=== PATIENT | female | born 1995 | race Two or more races ===

== ENCOUNTER 2023-01-13 11:19 | Emergency (ER) | payer MEDICAID, OTHER ==
[~2023-01-13] VITALS: Ht 165.1 cm; Wt 80.5 kg
[~2023-01-13 11:19] MED LIST: PRENCAP87 PO
[2023-01-13] MEDS ORDERED: ACETAMINOPHEN 325 MG TAB PO ONE (11:45)
[2023-01-13 14:39] LABS: COVID19 ANTIGEN SOFIA FIA POSITIVE (NEGATIVE)
[2023-01-13 14:47] LABS: Urine Bacteria MOD /hpf (None Seen); Urine Blood Negative /uL (Negative); Urine Clarity HAZY (Clear); Urine Color Yellow (Yellow); Urine Mucus FEW (None Seen); Urine Protein, UAD TRACE (Negative); Urine Specific Gravity 1.023 (1.001-1.035); Urine Urobilinogen Normal (Negative); Urine WBC 8 /hpf (0 - 5); Urine pH 5.5 (5.0-8.0)
[2023-01-13] MEDS ORDERED: BENZ200C64 PO (15:06)
[2023-01-13] MEDS ORDERED: CEPH500C PO (15:06)
[2023-01-13] MEDS ORDERED: ALBUAER3 IN (15:06)
[2023-01-13] MEDS ORDERED: BENZLOZ2 MT (15:06)
[2023-01-13] MEDS ORDERED: DEX4T PO (15:06)
[2023-01-13] MEDS ORDERED: ZOFR4T PO (15:06)
[2023-01-13 15:12] VITALS: BP 148/90; PULSE 96; RESP 16; TEMP 98.4; O2SAT 100
== END 2023-01-13 15:13 | disposition home or self-care (01) ==
LOC: ER 11:19
DX: U07.1 COVID-19 (principal); J20.9 Acute bronchitis, unspecified; J02.9 Acute pharyngitis, unspecified
CPT/HCPCS: 36415; 71045; 81001; 81025; 87426

== ENCOUNTER → 2023-03-28 | Outpatient (CLI) | payer MEDICAID ==
[~2023-03-28] MED LIST changes: +ALBUAER3 IN; +BENZ200C64 PO; +BENZLOZ2 MT; +CEPH500C PO; +DEX4T PO; +ZOFR4T PO
[2023-03-28 12:47] LABS: Basophils # (auto) 0 10 ^3/uL (0-0.2); Basophils % (auto) 0.5 % (0.0-2.0); Eosinophils # (auto) 0.1 10 ^3/uL (0-0.8); Eosinophils % (auto) 1.3 % (0.0-7.0); Hematocrit 39.5 % (36.0-46.0); Hemoglobin 13.6 g/dL (12.2-16.2); Lymphocytes # (auto) 1.4 10 ^3/uL (0.4-5.4); Lymphocytes % (auto) 16.8 % (10.0-50.0); Mean Corpuscular Hemoglobin 31.5 pg (28.0-32.0); Mean Corpuscular Hgb Conc. 34.3 g/dL (32.0-36.0); Mean Corpuscular Volume 91.8 fL (80.0-100.0); Monocytes # (auto) 0.6 10 ^3/uL (0-1.3); Monocytes % (auto) 7.3 % (0.0-12.0); Neutrophils # (auto) 6.3 10 ^3/uL (1.6-8.6); Neutrophils % (auto) 74.1 % (37.0-80.0); Nucleated Red Blood Cells % 0.1 %; Red Blood Cells 4.31 10^6/uL (4.0-5.20); Red Cell Distribution Width 13.3 % (11.8-14.3); White Blood Cell 8.5 10^3/uL (4.4-10.8)
[2023-03-28 13:15] LABS: Amphetamine Screen, Urine Neg (NEGATIVE); Barbiturate Scree,Urine Neg (NEGATIVE); Benzodiazephine Screen, Urine Neg (NEGATIVE); Cannabinoid Screen, Urine Neg (NEGATIVE); Cocaine Screen, Urine Neg (NEGATIVE); Opiate Scree,Urine Neg (NEGATIVE); Phencyclidine Screen, Urine Neg (NEGATIVE)
[2023-03-29 06:06] LABS: Varicella Zoster IgG Antibody 579 index (Immune >165)
[2023-03-29 07:06] LABS: RPR Non Reactive (Non Reactive)
[2023-03-29 20:06] LABS: Chlamydia Trachomatis, NAA Negative (Negative); Neisseria gonorrhoeae, NAA Negative (Negative)
[2023-03-31 04:06] LABS: QuantiFERON-TB Gold Plus Negative (Negative)
== END | disposition home or self-care (01) ==
LOC: LAB 12:16
PROVIDERS: ATTEND Obstetrics & Gynecology
DX: Z34.00 Encounter for supervision of normal first pregnancy, unspecified trimester (principal); Z31.430 Encounter of female for testing for genetic disease carrier status for procreative management; N39.0 Urinary tract infection, site not specified; Z36.0 Encounter for antenatal screening for chromosomal anomalies; Z3A.00 Weeks of gestation of pregnancy not specified
CPT/HCPCS: 36415; 80307; 83036; 84702; 85025; 86592; 86703; 86762; 86787; 86850; 86900; 86901; 87086; 87340

== ENCOUNTER 2023-06-11 17:55 | Emergency (ER) | payer MEDICAID ==
[~2023-06-11] VITALS: Ht 162.6 cm; Wt 81.2 kg
[2023-06-11 19:02] LABS: Basophils # (auto) 0 10 ^3/uL (0-0.2); Basophils % (auto) 0.4 % (0.0-2.0); Eosinophils # (auto) 0.1 10 ^3/uL (0-0.8); Eosinophils % (auto) 1.4 % (0.0-7.0); Hematocrit 38.6 % (36.0-46.0); Hemoglobin 13.2 g/dL (12.2-16.2); Lymphocytes # (auto) 1.6 10 ^3/uL (0.4-5.4); Lymphocytes % (auto) 17.8 % (10.0-50.0); Mean Corpuscular Volume 91.1 fL (80.0-100.0); Monocytes # (auto) 0.7 10 ^3/uL (0-1.3); Monocytes % (auto) 7.2 % (0.0-12.0); Neutrophils # (auto) 6.8 10 ^3/uL (1.6-8.6); Neutrophils % (auto) 73.2 % (37.0-80.0); Nucleated Red Blood Cells % 0.1 %; Red Blood Cells 4.24 10^6/uL (4.0-5.20); Red Cell Distribution Width 13.1 % (11.8-14.3); White Blood Cell 9.3 10^3/uL (4.4-10.8)
[2023-06-11 19:33] LABS: Chloride 108 mmol/L (98-107); Sodium 137 mmol/L (136-145)
[2023-06-11 19:34] LABS: Anion Gap 6 (5-15); Calcium 9.6 mg/dL (8.5-10.1); Carbon Dioxide 23 mmol/L (20-30)
[2023-06-11 19:39] LABS: BUN/Creatinine Ratio 15.2 (10.0-20.0); Blood Urea Nitrogen 7 mg/dL (9-23); Glucose 84 mg/dL (74-106)
[2023-06-11 21:09] LABS: Urine Bacteria FEW /hpf (None Seen); Urine Blood Negative /uL (Negative); Urine Clarity Clear (Clear); Urine Color Yellow (Yellow); Urine Protein, UAD Negative (Negative); Urine Specific Gravity 1.023 (1.001-1.035); Urine Urobilinogen Normal (Negative); Urine WBC 1 /hpf (0 - 5)
[2023-06-11 21:23] VITALS: BP 113/78; PULSE 79; RESP 16; TEMP 98.2; O2SAT 98
== END 2023-06-11 21:25 | disposition home or self-care (01) ==
LOC: ER 17:55
DX: O26.892 Other specified pregnancy related conditions, second trimester (principal); R07.89 Other chest pain; R51.9 Headache, unspecified; Z3A.16 16 weeks gestation of pregnancy
CPT/HCPCS: 36415; 80048; 81001; 84484; 85025; 93005

== ENCOUNTER 2023-08-27 12:58 | Observation (INO) | payer MEDICAID ==
[~2023-08-27] VITALS: Ht 165.1 cm; Wt 83.9 kg
[2023-08-27] MEDS ORDERED: ONDANSETRON HCL 4 MG/2 ML VIAL IV ONE (13:45)
[2023-08-27] MEDS: LACTATED RINGER'S 1,000 ML IV ONE (14:02)
[2023-08-27 14:13] VITALS: TEMP 99.9
[2023-08-27] MEDS: ACETAMINOPHEN 500 MG TAB PO ONE ×2 (14:13→15:21)
[2023-08-27] MEDS: ACETAMINOPHEN 325 MG TAB PO PRN (14:13)
[2023-08-27 15:17] LABS: COVID19 ANTIGEN SOFIA FIA NEGATIVE (NEGATIVE)
[2023-08-27 15:18] LABS: Rapid Influenza A Negative (Negative); Rapid Influenza B Negative (Negative)
[2023-08-27] MEDS: D5W/LACTATED RINGERS 1,000 ML IV SCH (15:21)
== END 2023-08-27 17:50 | disposition home or self-care (01) ==
LOC: LDRP 12:58 → UNDOADMOB 12:58 → LDRP 13:12
PROVIDERS: ADMIT Obstetrics & Gynecology; ATTEND Obstetrics & Gynecology
DX: O21.2 Late vomiting of pregnancy (principal); Z20.822 Contact with and (suspected) exposure to COVID-19; O26.892 Other specified pregnancy related conditions, second trimester; R21 Rash and other nonspecific skin eruption; R50.9 Fever, unspecified; R19.7 Diarrhea, unspecified; Z3A.28 28 weeks gestation of pregnancy
CPT/HCPCS: 36415; 59025; 81002; 87426; 87804; 94760; 96360; 96361; G0378

== ENCOUNTER 2023-10-04 11:10 | Observation (INO) | payer MEDICAID ==
[2023-10-04 12:17] LABS: Basophils # (auto) 0 10 ^3/uL (0-0.2); Basophils % (auto) 0.4 % (0.0-2.0); Eosinophils # (auto) 0.1 10 ^3/uL (0-0.8); Eosinophils % (auto) 0.8 % (0.0-7.0); Hematocrit 35.2 % (36.0-46.0); Lymphocytes # (auto) 1.1 10 ^3/uL (0.4-5.4); Lymphocytes % (auto) 13.1 % (10.0-50.0); Mean Corpuscular Hemoglobin 31.4 pg (28.0-32.0); Mean Corpuscular Hgb Conc. 34.1 g/dL (32.0-36.0); Mean Corpuscular Volume 91.8 fL (80.0-100.0); Monocytes # (auto) 0.6 10 ^3/uL (0-1.3); Monocytes % (auto) 7.1 % (0.0-12.0); Neutrophils # (auto) 6.7 10 ^3/uL (1.6-8.6); Neutrophils % (auto) 78.6 % (37.0-80.0); Red Blood Cells 3.83 10^6/uL (4.0-5.20); Red Cell Distribution Width 12.9 % (11.8-14.3); White Blood Cell 8.5 10^3/uL (4.4-10.8)
[2023-10-04 12:33] LABS: Alanine Aminotransferase 34 U/L (7-40); Alkaline Phosphatase 184 U/L (46-116); Anion Gap 8 (5-15); Aspartate Aminotransferase 28 U/L (13-40); Bilirubin, Total 0.7 mg/dL (0.2-1.0); Calcium 9.5 mg/dL (8.7-10.4); Carbon Dioxide 22 mmol/L (20-30); Chloride 107 mmol/L (98-107); Glucose 89 mg/dL (74-106); Potassium 3.9 mmol/L (3.5-5.1); Sodium 137 mmol/L (136-145); Total Protein 6.7 g/dL (5.7-8.2); Uric Acid 3.6 mg/dL (3.1-7.8)
[2023-10-04 12:37] LABS: INR 0.95 (0.9-1.15); Partial Thromboplastin Time 27.6 SEC (24.5-34.5); Prothrombin Time 10.1 sec (9.3-11.8)
[2023-10-04 12:49] LABS: BUN/Creatinine Ratio 10.6 (10.0-20.0); Blood Urea Nitrogen < 5 mg/dL (9-23)
[2023-10-04 12:54] LABS: Urine Bacteria FEW /hpf (None Seen); Urine Blood Negative /uL (Negative); Urine Clarity Ex.Turbid (Clear); Urine Color Light-Orange (Yellow); Urine Hyaline Cast FEW /lpf (0 - 2); Urine Mucus FEW (None Seen); Urine Protein, UAD TRACE (Negative); Urine Specific Gravity 1.016 (1.001-1.035); Urine Urobilinogen Normal (Negative); Urine WBC 12 /hpf (0 - 5); Urine pH 6.5 (5.0-9.0)
[2023-10-04 13:23] LABS: Protein, Urine 37.1 mg/dL (0.0-11.9)
[2023-10-04 13:26] LABS: Creatinine, Urine 81.28 mg/dL (30.0-125.0); Urine Protein/Creatinine Ratio 0.46
== END 2023-10-04 14:05 | disposition short-term general hospital (02) ==
LOC: UNDOADMOB 11:10 → LDRP 11:10
PROVIDERS: ADMIT Obstetrics & Gynecology; ATTEND Obstetrics & Gynecology
DX: O26.893 Other specified pregnancy related conditions, third trimester (principal); R51.9 Headache, unspecified; Z3A.33 33 weeks gestation of pregnancy; Z86.2 Personal history of diseases of the blood and blood-forming organs and certain disorders involving the immune mechanism
CPT/HCPCS: 36415; 59025; 76818; 80053; 81001; 81002; 82570; 84156; 84550; 85025; 85610; 85730; G0378

== ENCOUNTER 2023-10-08 08:29 | Observation (INO) | payer MEDICAID ==
[2023-10-08 12:49] LABS: Urine Bacteria FEW /hpf (None Seen); Urine Blood Negative /uL (Negative); Urine Clarity Turbid (Clear); Urine Color Yellow (Yellow); Urine Protein, UAD Negative (Negative); Urine Specific Gravity 1.018 (1.001-1.035); Urine Urobilinogen Normal (Negative); Urine WBC 2 /hpf (0 - 5); Urine pH 5.5 (5.0-9.0)
[2023-10-08 12:57] LABS: Protein, Urine 12.9 mg/dL (0.0-11.9)
[2023-10-08 13:13] LABS: Protein, Urine 20.5 mg/dL (0.0-11.9)
[2023-10-08 13:16] LABS: Creatinine, Urine 99.4 mg/dL (30.0-125.0); Urine Protein/Creatinine Ratio 0.21
[2023-10-08 13:27] LABS: 24 Hr. Total Protein, Urine 180.6 mg/24 Hr (<149.1)
== END 2023-10-08 14:30 | disposition home or self-care (01) ==
LOC: UNDOADMOB 11:56 → LDRP 11:56
PROVIDERS: ADMIT Obstetrics & Gynecology; ATTEND Obstetrics & Gynecology
DX: Z36.89 Encounter for other specified antenatal screening (principal); Z3A.34 34 weeks gestation of pregnancy; Z79.899 Other long term (current) drug therapy
CPT/HCPCS: 59025; 76818; 81001; 81002; 82570; 82948; 84156; 94760; G0378

== ENCOUNTER 2023-11-05 10:29 | Observation (INO) | payer MEDICAID ==
[~2023-11-05] VITALS: Ht 162.6 cm; Wt 87.5 kg
[2023-11-05] MEDS: ONDANSETRON HCL 4 MG/2 ML VIAL IV ONE (11:30)
[2023-11-05] MEDS: FAMOTIDINE (10MG/ML) 2ML VL IV ONE (11:30)
[2023-11-05] MEDS: LACTATED RINGER'S 1,000 ML IV ONE (11:31)
[2023-11-05 12:02] LABS: Protein, Urine 61.6 mg/dL (0.0-11.9)
[2023-11-05 12:12] LABS: Creatinine, Urine 280.1 mg/dL (30.0-125.0); Urine Protein/Creatinine Ratio 0.22
[2023-11-05 12:25] LABS: Basophils # (auto) 0 10 ^3/uL (0-0.2); Basophils % (auto) 0.4 % (0.0-2.0); Eosinophils # (auto) 0 10 ^3/uL (0-0.8); Eosinophils % (auto) 0.4 % (0.0-7.0); Hematocrit 33.1 % (36.0-46.0); Hemoglobin 11.2 g/dL (12.2-16.2); Lymphocytes % (auto) 14.4 % (10.0-50.0); Mean Corpuscular Hemoglobin 30.9 pg (28.0-32.0); Mean Corpuscular Hgb Conc. 33.9 g/dL (32.0-36.0); Monocytes # (auto) 0.6 10 ^3/uL (0-1.3); Monocytes % (auto) 9.2 % (0.0-12.0); Neutrophils # (auto) 5.1 10 ^3/uL (1.6-8.6); Neutrophils % (auto) 75.6 % (37.0-80.0); Red Blood Cells 3.64 10^6/uL (4.0-5.20); Red Cell Distribution Width 13.4 % (11.8-14.3); White Blood Cell 6.8 10^3/uL (4.4-10.8)
[2023-11-05 12:35] LABS: Albumin 3.6 g/dL (3.2-4.8); Alkaline Phosphatase 207 U/L (46-116); Anion Gap 7 (5-15); Aspartate Aminotransferase 12 U/L (13-40); Bilirubin, Total 0.7 mg/dL (0.2-1.0); Calcium 8.8 mg/dL (8.7-10.4); Carbon Dioxide 20 mmol/L (20-30); Chloride 108 mmol/L (98-107); Glucose 98 mg/dL (74-106); Potassium 3.5 mmol/L (3.5-5.1); Sodium 135 mmol/L (136-145); Total Protein 6.1 g/dL (5.7-8.2); Uric Acid 4.9 mg/dL (3.1-7.8)
[2023-11-05 12:37] LABS: Alanine Aminotransferase < 9 U/L (7-40); Blood Urea Nitrogen < 5 mg/dL (9-23)
[2023-11-05 12:40] LABS: Urine Bacteria MANY /hpf (None Seen); Urine Blood Negative /uL (Negative); Urine Clarity Ex.Turbid (Clear); Urine Color Orange (Yellow); Urine Mucus FEW (None Seen); Urine Protein, UAD 1+ (Negative); Urine Specific Gravity 1.028 (1.001-1.035); Urine Urobilinogen 4 mg/dL (Negative); Urine WBC 22 /hpf (0 - 5)
[2023-11-05 12:41] LABS: Rapid Influenza A Negative (Negative); Rapid Influenza B Negative (Negative)
[2023-11-05 12:41] LABS: INR 0.92 (0.9-1.15); Partial Thromboplastin Time 27.8 SEC (24.5-34.5); Prothrombin Time 9.8 sec (9.3-11.8)
[2023-11-05 12:42] LABS: COVID19 ANTIGEN SOFIA FIA NEGATIVE (NEGATIVE)
[2023-11-05] MEDS: ACETAMINOPHEN 325 MG TAB PO ONE (15:59)
[2023-11-05] MEDS: NIFEdipine 10 MG CAP PO ONE (16:01)
== END 2023-11-05 16:36 | disposition home or self-care (01) ==
LOC: LDRP 10:29
PROVIDERS: ADMIT Obstetrics & Gynecology; ATTEND Obstetrics & Gynecology
DX: O21.2 Late vomiting of pregnancy (principal); Z20.822 Contact with and (suspected) exposure to COVID-19; O26.893 Other specified pregnancy related conditions, third trimester; R51.9 Headache, unspecified; R19.7 Diarrhea, unspecified; Z3A.38 38 weeks gestation of pregnancy; Z98.891 History of uterine scar from previous surgery; Z86.2 Personal history of diseases of the blood and blood-forming organs and certain disorders involving the immune mechanism
CPT/HCPCS: 36415; 59025; 76818; 80053; 81001; 81002; 82570; 84156; 84550; 85025; 85610; 85730; 87426; 87804; 94760; 96361; 96374; 96375; G0378; J2405; J3490

== ENCOUNTER 2023-11-08 08:23 | Inpatient (IN) | payer MEDICAID ==
[~2023-11-08] VITALS: Ht 162.6 cm; Wt 87.1 kg
[2023-11-08 10:54] LABS: Basophils # (auto) 0 10 ^3/uL (0-0.2); Basophils % (auto) 0.5 % (0.0-2.0); Eosinophils # (auto) 0.1 10 ^3/uL (0-0.8); Hematocrit 36.4 % (36.0-46.0); Hemoglobin 12.3 g/dL (12.2-16.2); Lymphocytes # (auto) 1.6 10 ^3/uL (0.4-5.4); Lymphocytes % (auto) 19.4 % (10.0-50.0); Mean Corpuscular Hemoglobin 30.5 pg (28.0-32.0); Mean Corpuscular Hgb Conc. 33.9 g/dL (32.0-36.0); Mean Corpuscular Volume 90.1 fL (80.0-100.0); Monocytes # (auto) 0.7 10 ^3/uL (0-1.3); Monocytes % (auto) 8.2 % (0.0-12.0); Neutrophils # (auto) 5.9 10 ^3/uL (1.6-8.6); Neutrophils % (auto) 70.9 % (37.0-80.0); Red Blood Cells 4.04 10^6/uL (4.0-5.20); Red Cell Distribution Width 13.6 % (11.8-14.3); White Blood Cell 8.3 10^3/uL (4.4-10.8)
[2023-11-08 11:01] LABS: Urine Bacteria FEW /hpf (None Seen); Urine Blood Negative /uL (Negative); Urine Clarity Clear (Clear); Urine Color Light-Yellow (Yellow); Urine Mucus FEW (None Seen); Urine Protein, UAD Negative (Negative); Urine Specific Gravity 1.016 (1.001-1.035); Urine Urobilinogen Normal (Negative); Urine WBC 1 /hpf (0 - 5); Urine pH 6.5 (5.0-9.0)
[2023-11-08 11:21] LABS: INR 0.92 (0.9-1.15); Partial Thromboplastin Time 26.6 SEC (24.5-34.5); Prothrombin Time 9.8 sec (9.3-11.8)
[2023-11-08 11:25] LABS: Alanine Aminotransferase 14 U/L (7-40); Albumin 3.8 g/dL (3.2-4.8); Alkaline Phosphatase 239 U/L (46-116); Anion Gap 6 (5-15); Aspartate Aminotransferase 16 U/L (13-40); Bilirubin, Total 0.5 mg/dL (0.2-1.0); Blood Urea Nitrogen 6 mg/dL (9-23); Calcium 9.2 mg/dL (8.5-10.1); Carbon Dioxide 21 mmol/L (20-30); Chloride 109 mmol/L (98-107); Glucose 80 mg/dL (74-106); Potassium 3.8 mmol/L (3.5-5.1); Sodium 136 mmol/L (136-145); Total Protein 6.4 g/dL (5.7-8.2)
[2023-11-08 11:26] LABS: Amphetamine Screen, Urine Neg (NEGATIVE); Barbiturate Scree,Urine Neg (NEGATIVE); Benzodiazephine Screen, Urine Neg (NEGATIVE); Cannabinoid Screen, Urine Neg (NEGATIVE); Cocaine Screen, Urine Neg (NEGATIVE); Opiate Scree,Urine Neg (NEGATIVE); Phencyclidine Screen, Urine Neg (NEGATIVE)
[2023-11-09] VITALS (17 sets, daily range): BP systolic 102–133; BP diastolic 61–80; PULSE 60–81; RESP 15–18; TEMP 98.2–98.4; O2SAT 96–99
[2023-11-09] MEDS: METOCLOPRAMIDE HCL 5MG/ml INJ 2ml VIAL IV ONE (04:30)
[2023-11-09] MEDS: LACTATED RINGER'S 1,000 ML IV ONE (05:50)
[2023-11-09] MEDS: LACTATED RINGER'S 1,000 ML IV SCH (05:51)
[2023-11-09] MEDS: ceFAZolin 2 GM/D5W50ml 50 ML IV ONE (06:55)
[2023-11-09] MEDS ORDERED: ONDANSETRON HCL 4 MG/2 ML VIAL ONE (06:55)
[2023-11-09] MEDS: SODIUM CITR/CITRIC ACID ORAL SOLN 30 ML PO ONE (06:55)
[2023-11-09] MEDS ORDERED: OXYTOCIN 10UNIT/ML 1ML VIAL ONE (06:56)
[2023-11-09] MEDS ORDERED: ePHEDrine SULFATE 50 MG/ML AMP ONE (06:57)
[2023-11-09] MEDS ORDERED: fentaNYL CITRATE 100 MCG/2 ML VL ONE (06:59)
[2023-11-09] MEDS ORDERED: MORPHINE SULF PF 5 MG/10 ML VIAL ONE (06:59)
[2023-11-09] MEDS ORDERED: PHENYLEPHRINE HCL 10 MG/ML VL ONE (07:01)
[2023-11-09 07:06] LABS: RPR Non Reactive (Non Reactive)
[2023-11-09] MEDS ORDERED: IBUP-1456 PO (07:50)
[2023-11-09] MEDS ORDERED: DOCU-94 PO (07:50)
[2023-11-09] MEDS ORDERED: HYDR-4902 PO (07:50)
[2023-11-09] MEDS: LACT. RINGERS/OXYTOCIN 20UNITS 1,000 ML IV ONE (08:00)
[2023-11-09] MEDS ORDERED: ONDANSETRON HCL 4 MG/2 ML VIAL IV PRN (08:00)
[2023-11-09] MEDS: GUM (CHEWING) 1 GUM CHEW CHEW ONE (08:00)
[2023-11-09] MEDS ORDERED: HYDROmorphone HCL 2 MG/ML VL/or syr IV PRN (08:30)
[2023-11-09] MEDS ORDERED: DexAMETHasone SOD PHOS 10MG/1ML VIAL INJ IV PRN (08:30)
[2023-11-09] MEDS ORDERED: NALOXONE HCL 0.4 MG/ML VIAL IV PRN (08:30)
[2023-11-09] MEDS: diphenhdrAMINE HCL 50 MG/1 ML VL IV PRN (10:47)
[2023-11-09] MEDS: ONDANSETRON HCL 4 MG/2 ML VIAL IV PRN (10:48)
[2023-11-09] MEDS: ceFAZolin 1GM/50ML 50 ML IV SCH (15:14)
[2023-11-09] MEDS: ACETAMINOPHEN IV 1000 MG/100ML (10MG/ML) IV PRN (20:55)
[2023-11-09 22:15] LABS: Basophils # (auto) 0 10 ^3/uL (0-0.2); Basophils % (auto) 0.2 % (0.0-2.0); Eosinophils # (auto) 0 10 ^3/uL (0-0.8); Eosinophils % (auto) 0.5 % (0.0-7.0); Hematocrit 33.8 % (36.0-46.0); Hemoglobin 11.5 g/dL (12.2-16.2); Lymphocytes # (auto) 1.4 10 ^3/uL (0.4-5.4); Lymphocytes % (auto) 13.7 % (10.0-50.0); Mean Corpuscular Hemoglobin 30.6 pg (28.0-32.0); Mean Corpuscular Volume 89.9 fL (80.0-100.0); Monocytes # (auto) 0.9 10 ^3/uL (0-1.3); Monocytes % (auto) 8.7 % (0.0-12.0); Neutrophils % (auto) 76.9 % (37.0-80.0); Red Blood Cells 3.76 10^6/uL (4.0-5.20); Red Cell Distribution Width 13.7 % (11.8-14.3); White Blood Cell 10.4 10^3/uL (4.4-10.8)
[2023-11-10] VITALS (9 sets, daily range): BP systolic 102–123; BP diastolic 57–72; PULSE 75–95; RESP 16–18; TEMP 97.9–98.8; O2SAT 95–100
[2023-11-10] MEDS ORDERED: BISACODYL 10 MG RECT SUPP PR PRN (06:45)
[2023-11-10] MEDS: HYDROcodone-ACET 5/325MG TAB PO PRN ×2 (07:14→15:31)
[2023-11-10 10:20] LABS: Basophils # (auto) 0 10 ^3/uL (0-0.2); Basophils % (auto) 0.2 % (0.0-2.0); Eosinophils # (auto) 0 10 ^3/uL (0-0.8); Eosinophils % (auto) 0.4 % (0.0-7.0); Hemoglobin 11.9 g/dL (12.2-16.2); Lymphocytes # (auto) 0.9 10 ^3/uL (0.4-5.4); Lymphocytes % (auto) 7.5 % (10.0-50.0); Mean Corpuscular Hemoglobin 30.7 pg (28.0-32.0); Mean Corpuscular Hgb Conc. 34.1 g/dL (32.0-36.0); Mean Corpuscular Volume 90.2 fL (80.0-100.0); Monocytes # (auto) 0.9 10 ^3/uL (0-1.3); Monocytes % (auto) 7.4 % (0.0-12.0); Neutrophils # (auto) 10.5 10 ^3/uL (1.6-8.6); Neutrophils % (auto) 84.5 % (37.0-80.0); Red Blood Cells 3.88 10^6/uL (4.0-5.20); Red Cell Distribution Width 13.7 % (11.8-14.3); White Blood Cell 12.5 10^3/uL (4.4-10.8)
[2023-11-10] MEDS: SIMETHICONE 80 MG CHEWABLE TABLET PO SCH (11:20)
[2023-11-10] MEDS: IBUPROFEN 800 MG TAB PO PRN (11:20)
[2023-11-10] MEDS: DOCUSATE SOD 100 MG CAP PO SCH (11:20)
[2023-11-10] MEDS: DOCUSATE CALCIUM 240 MG CAP PO SCH (11:20)
[2023-11-11 03:00] VITALS: BP 113/69; PULSE 84; RESP 18; TEMP 98.6; O2SAT 98
[2023-11-11 07:00] VITALS: BP 100/56; PULSE 75; RESP 16; TEMP 98.1; O2SAT 98
[2023-11-11 10:20] VITALS: TEMP 36.7
[2023-11-11 18:06] LABS: Treponema pallidum Ab (FTA-Ab) Non Reactive (Non Reactive)
== END 2023-11-11 11:23 | disposition home or self-care (01) | DRG 540 ==
LOC: EDSTATUS 09:12 → LDRP 11-09 04:08
PROVIDERS: ADMIT Obstetrics & Gynecology; ATTEND Obstetrics & Gynecology
PROC: 10D00Z1 Extraction of Products of Conception, Low, Open Approach (ICD-10-PCS; principal; 2023-11-09 06:59)
DX: O99.214 Obesity complicating childbirth (principal); O99.12 Other diseases of the blood and blood-forming organs and certain disorders involving the immune mechanism complicating childbirth; D69.59 Other secondary thrombocytopenia; O34.211 Maternal care for low transverse scar from previous cesarean delivery; E66.01 Morbid (severe) obesity due to excess calories; Z37.0 Single live birth; Z3A.38 38 weeks gestation of pregnancy
CPT/HCPCS: 36415; 59025; 80053; 80307; 81001; 84112; 85025; 85610; 85730; 86592; 86850; 86900; 86901; 94760; 94762; 96360; 96361; 96365; 96366; 96374; 96375; G0378; J0131; J2405